=== PATIENT | female | born 1955 | race Caucasian/White ===

== ENCOUNTER 2020-12-17 14:08 | Inpatient (IN) | payer MEDICARE ==
[2020-12-17] VITALS (17 sets, daily range): BP systolic 91–154; BP diastolic 37–90
[~2020-12-17] VITALS: Ht 152.4 cm; Wt 74.9 kg
[~2020-12-17 14:08] MED LIST: ETOMIDATE 2MG/ML 10ML VIAL IV ONE; LIDOCAINE HCL 2% 5ML SYRINGE IV ONE; SUCCINYLCHOLINE CHLORIDE 200MG/10ML IV ONE
[2020-12-17] MEDS ORDERED: SODIUM CHLORIDE 0.9% 1,000 ML IV ONE (14:30)
[2020-12-17] MEDS ORDERED: ATROPINE SULFATE 1MG/10ML SYR IV ONE (14:45)
[2020-12-17] MEDS ORDERED: ASPIRIN 300MG SUPP PR ONE (14:45)
[2020-12-17] MEDS ORDERED: ONDANSETRON HCL 4MG/2ML INJ IV ONE (14:45)
[2020-12-17 15:00] LABS: BASOPHILS % 0.8 % (0.0-2.0); EOSINOPHILS % 10.5 % (0.0-5.0); HEMATOCRIT. 30.1 % (36.0-48.0); HEMOGLOBIN. 10.1 g/dL (12.0-16.0); LYMPHOCYTES % 35.5 % (20.0-50.0); MEAN CORPUSCULAR HEMOGLOBIN 30.7 pg (28.0-32.0); MEAN CORPUSCULAR VOLUME 91.4 fL (81.0-99.0); MEAN PLATELET VOLUME 8.1 fl (7.4-10.4); MONOCYTES % 4.7 % (2.0-8.0); NEUTROPHILS % 48.5 % (40.0-76.0); PLATELET 250 x1000/uL (130-400); RED CELL DISTRIBUTION WIDTH 13.5 % (11.6-14.6)
[2020-12-17] MEDS ORDERED: CALCIUM GLUCONATE 100MG/ML 10ML VIAL IV ONE (15:00)
[2020-12-17] MEDS ORDERED: ASPIRIN 81MG EC TABLET PO ONE (15:00)
[2020-12-17] MEDS ORDERED: DOPAMINE 400MG/250ML PREMIX 250 ML IV ONE (15:00)
[2020-12-17 15:07] LABS: CHLORIDE 102 mEq/L (98-107)
[2020-12-17 15:13] LABS: PARTIAL THROMBOPLASTIN TIME 23.7 sec (23.4-31.0); PROTHROMBIN TIME 10.6 sec (9.6-11.0)
[2020-12-17] MEDS ORDERED: MIDAZOLAM 100MG/100ML PREMIX IV PRN ×2 (15:15→15:30)
[2020-12-17] MEDS ORDERED: FENTANYL IV PRN (15:15)
[2020-12-17] MEDS ORDERED: SODIUM CHLORIDE 0.9% IV PRN (15:15)
[2020-12-17] MEDS ORDERED: NOREPINEPHRINE 8MG/250ML PMX 250 ML IV ONE ×2 (15:15→15:30)
[2020-12-17] MEDS ORDERED: IOHEXOL-300 100 ML BOTTLE ONE (15:20)
[2020-12-17] MEDS ORDERED: LIDOCAINE HCL 1% 30ML VIAL (10MG/ML) ONE (15:20)
[2020-12-17] MEDS ORDERED: IODIXANOL 320MG/ML 200ML BOTTLE ONE (15:21)
[2020-12-17] MEDS ORDERED: NOREPINEPHRINE 8MG/250ML PMX 250 ML IV SCH (15:30)
[2020-12-17] MEDS ORDERED: ALTEPLASE 100MG/VIAL IV ONE (15:45)
[2020-12-17] MEDS ORDERED: EPINEPHRINE 0.1MG/ML (1:10,000) 10ML SYR ONE (15:46)
[2020-12-17] MEDS ORDERED: ATROPINE SULFATE 0.1MG/ML 10ML DISP.SYRIN ONE (15:58)
[2020-12-17] MEDS ORDERED: HEPARIN 1000 UNITS/ML 10ML ONE (16:06)
[2020-12-17] MEDS ORDERED: EPINEPHRINE 10 MG in SODIUM CHLORIDE 0.9% 250 ML IV PRN (16:15)
[2020-12-17] MEDS ORDERED: NOREPINEPHRINE BITARTRATE 1MG/ML 4ML IV ONE (16:21)
[2020-12-17] MEDS ORDERED: FENTANYL CITRATE/PF 50MCG/ML 2ML VIAL ONE (16:35)
[2020-12-17] MEDS ORDERED: MIDAZOLAM HCL 2 MG/2 ML VIAL ONE ×2 (16:36→17:30)
[2020-12-17] MEDS ORDERED: ADENOSINE 3 MG/ML 2ML VIAL IV ONE (16:47)
[2020-12-17] MEDS ORDERED: EPTIFIBATIDE 2 MG/ML 10ML VIAL IV ONE (17:09)
[2020-12-17] MEDS ORDERED: EPTIFIBATIDE 0 ML IV ONE (17:09)
[2020-12-17] MEDS ORDERED: AMIODARONE HCL 900 MG in DEXT 5% WATER 500 ML IV PRN (17:30)
[2020-12-17] MEDS ORDERED: IPRATROPIUM/ALBUTEROL 0.5-3(2.5)MG/3ML NEB HHN PRN (17:30)
[2020-12-17] MEDS ORDERED: ONDANSETRON HCL 4MG/2ML INJ IV PRN (17:30)
[2020-12-17] MEDS ORDERED: TICAGRELOR 90 MG TABLET PO ONE (18:14)
[2020-12-17] MEDS ORDERED: NOREPINEPHRINE 8 MG in DEXT 5% WATER 242 ML IV PRN (18:45)
[2020-12-17] MEDS ORDERED: HEPARIN 5000 UNITS/ML VIAL IV SCH ×2 (19:00→19:15)
[2020-12-17] MEDS: DEXT 5%/0.9% NACL 1,000 ML IV SCH (19:00)
[2020-12-17] MEDS ORDERED: HEPARIN 25,000 UNITS PREMIX 250 ML IV PRN (19:00)
[2020-12-17] MEDS ORDERED: HEPARIN 5000 UNITS/ML VIAL IV PRN ×2 (19:00)
[2020-12-17] MEDS ORDERED: HEPARIN 25,000 UNITS PREMIX 250 ML IV SCH (19:30)
[2020-12-17] MEDS ORDERED: HEPARIN BOLUS PRN aPTT 30-44 IV (19:30)
[2020-12-17] MEDS ORDERED: HEPARIN 60 UNITS/KG BOLUS IV SCH (19:30)
[2020-12-17] MEDS ORDERED: HEPARIN BOLUS PRN aPTT <30 IV (19:30)
[2020-12-17 19:55] LABS: BG BASE EXCESS -7.6 mmol/L (-2.0-2.0); BG CARBOXYHEMOGLOBIN 0.5 % (0.5-1.5); BG DEOXYHEMOGLOBIN 4.4 % (0.0-5.0); BG FRACTION INSPIRED OXYGEN 50; BG HCO3 ACT 18.5 mmol/L (22.0-26.0); BG METHEMOGLOBIN 0.1 % (0.0-1.5); BG OXYGEN SATURATION 95.6 % (92.0-98.5); BG PCO2 39.8 mmHg (35.0-45.0); BG PH 7.285 (7.350-7.450); BG SAMPLE SITE ALINE; BG TOTAL HEMOGLOBIN 11.4 g/dL (12.0-18.0); BG VENT MODE VENT - AC
[2020-12-17] MEDS ORDERED: HEPARIN 5000 UNITS/ML VIAL SUBCUT SCH (20:00)
[2020-12-17] MEDS: FENTANYL CITRATE/PF 2,500 MCG in SODIUM CHLORIDE 0.9% 200 ML IV PRN (21:23)
[2020-12-17] MEDS: MIDAZOLAM HCL 100 MG in SODIUM CHLORIDE 0.9% 80 ML IV PRN (21:28)
[2020-12-17 22:07] LABS: INR 1.3; PROTHROMBIN TIME 14.1 sec (9.6-11.0)
[2020-12-18] VITALS (94 sets, daily range): BP systolic 82–155; BP diastolic 34–108
[2020-12-18] MEDS: NOREPINEPHRINE 8 MG in DEXT 5% WATER 242 ML IV PRN (04:13)
[2020-12-18 06:10] LABS: BASOPHILS % 0.2 % (0.0-2.0); EOSINOPHILS % 0.1 % (0.0-5.0); HEMATOCRIT. 31.5 % (36.0-48.0); HEMOGLOBIN. 10.5 g/dL (12.0-16.0); LYMPHOCYTES % 8.9 % (20.0-50.0); MEAN CORPUSCULAR HEMOGLOBIN 30.3 pg (28.0-32.0); MEAN CORPUSCULAR VOLUME 91.1 fL (81.0-99.0); MEAN PLATELET VOLUME 7.8 fl (7.4-10.4); MONOCYTES % 5.9 % (2.0-8.0); NEUTROPHILS % 84.9 % (40.0-76.0); PLATELET 214 x1000/uL (130-400); RED BLOOD CELL COUNT 3.45 mill/uL (4.2-5.4); RED CELL DISTRIBUTION WIDTH 13.7 % (11.6-14.6)
[2020-12-18 06:41] LABS: CHLORIDE 104 mEq/L (98-107)
[2020-12-18 06:59] LABS: LDL CHOLESTEROL 61 mg/dL (5-100)
[2020-12-18 07:00] LABS: HDL CHOLESTEROL 39 mg/dL (40-59)
[2020-12-18] MEDS ORDERED: DEXTROSE 50% WATER 50ML SYRINGE IV PRN (08:15)
[2020-12-18] MEDS ORDERED: INSULIN LISPRO 100 UNITS/ML SUBCUT SCH (08:15)
[2020-12-18] MEDS: INSULIN LISPRO 100 UNITS/ML SUBCUT SCH ×4 (08:20→21:59)
[2020-12-18 09:03] LABS: BG BASE EXCESS -6.7 mmol/L (-2.0-2.0); BG CARBOXYHEMOGLOBIN 0.3 % (0.5-1.5); BG DEOXYHEMOGLOBIN 1.2 % (0.0-5.0); BG FRACTION INSPIRED OXYGEN 50; BG HCO3 ACT 15.7 mmol/L (22.0-26.0); BG METHEMOGLOBIN 0.4 % (0.0-1.5); BG OXYGEN SATURATION 98.8 % (92.0-98.5); BG OXYHEMOGLOBIN 98.1 % (94.0-97.0); BG PH 7.472 (7.350-7.450); BG PO2 174.7 mmHg (75.0-100.0); BG SAMPLE SITE ALINE; BG TOTAL HEMOGLOBIN 8.6 g/dL (12.0-18.0); BG TOTAL RESPIRATORY RATE 16 b/min; BG VENT MODE VENT - AC
[2020-12-18] MEDS: ASPIRIN 81MG TABLET PO SCH (09:15)
[2020-12-18] MEDS: TICAGRELOR 90 MG TABLET PO SCH ×2 (09:15→16:17)
[2020-12-18] MEDS: DEXT 5%/0.9% NACL 1,000 ML IV SCH ×2 (09:17→21:50)
[2020-12-18] MEDS: PIPERACILLIN/TAZOBACTAM 3.375 G in DEXTROSE 5% WATER 50 ML IV SCH ×3 (10:42→22:24)
[2020-12-18] MEDS: INSULIN GLARGINE UD 100 UNITS/ML SYR SUBCUT SCH ×2 (10:43→21:58)
[2020-12-18] MEDS: MIDAZOLAM HCL 100 MG in SODIUM CHLORIDE 0.9% 80 ML IV PRN (12:33)
[2020-12-18] MEDS: BLOOD SUGAR DIAGNOSTIC STRIP TEST SCH ×3 (12:54→21:48)
[2020-12-18] MEDS: METOCLOPRAMIDE HCL 10MG/2ML VIAL IV SCH (18:11)
[2020-12-19] VITALS (97 sets, daily range): BP systolic 85–143; BP diastolic 27–91
[2020-12-19] MEDS: METOCLOPRAMIDE HCL 10MG/2ML VIAL IV SCH ×4 (00:40→17:51)
[2020-12-19] MEDS: MIDAZOLAM HCL 100 MG in SODIUM CHLORIDE 0.9% 80 ML IV PRN ×2 (00:42→13:01)
[2020-12-19] MEDS: FENTANYL CITRATE/PF 2,500 MCG in SODIUM CHLORIDE 0.9% 200 ML IV PRN (05:01)
[2020-12-19] MEDS: PIPERACILLIN/TAZOBACTAM 3.375 G in DEXTROSE 5% WATER 50 ML IV SCH ×3 (05:09→21:10)
[2020-12-19] MEDS: NOREPINEPHRINE 8 MG in DEXT 5% WATER 242 ML IV PRN ×2 (05:10→23:34)
[2020-12-19] MEDS: BLOOD SUGAR DIAGNOSTIC STRIP TEST SCH ×4 (06:19→20:55)
[2020-12-19] MEDS: DEXT 5%/0.9% NACL 1,000 ML IV SCH ×2 (06:28→16:40)
[2020-12-19] MEDS: INSULIN LISPRO 100 UNITS/ML SUBCUT SCH ×4 (06:28→21:00)
[2020-12-19] MEDS: ASPIRIN 81MG TABLET PO SCH (08:52)
[2020-12-19] MEDS: TICAGRELOR 90 MG TABLET PO SCH ×2 (08:52→17:51)
[2020-12-19 09:09] LABS: BASOPHILS % 0.2 % (0.0-2.0); EOSINOPHILS % 2.9 % (0.0-5.0); HEMATOCRIT. 31.3 % (36.0-48.0); HEMOGLOBIN. 10.5 g/dL (12.0-16.0); LYMPHOCYTES % 9.4 % (20.0-50.0); MEAN CORPUSCULAR HEMOGLOBIN 30.3 pg (28.0-32.0); MEAN CORPUSCULAR VOLUME 90.3 fL (81.0-99.0); MEAN PLATELET VOLUME 7.8 fl (7.4-10.4); MONOCYTES % 6.2 % (2.0-8.0); NEUTROPHILS % 81.3 % (40.0-76.0); PLATELET 139 x1000/uL (130-400); RED BLOOD CELL COUNT 3.47 mill/uL (4.2-5.4); RED CELL DISTRIBUTION WIDTH 14.1 % (11.6-14.6)
[2020-12-19] MEDS ORDERED: KCL 20MEQ/100ML PREMIX 100 ML IV ONE (10:00)
[2020-12-19] MEDS: INSULIN GLARGINE UD 100 UNITS/ML SYR SUBCUT SCH ×2 (10:14→21:14)
[2020-12-19] MEDS ORDERED: MAGNESIUM 2 G PREMIX 50 ML IV SCH (12:00)
[2020-12-19] MEDS ORDERED: POTASSIUM CHLORIDE INJ 60 MEQ in DEXT 5% WATER 500 ML IV SCH (12:00)
[2020-12-19 12:03] LABS: BG CARBOXYHEMOGLOBIN 0.3 % (0.5-1.5); BG DEOXYHEMOGLOBIN 2.1 % (0.0-5.0); BG HCO3 ACT 21.3 mmol/L (22.0-26.0); BG METHEMOGLOBIN 0.1 % (0.0-1.5); BG OXYGEN SATURATION 97.9 % (92.0-98.5); BG OXYHEMOGLOBIN 97.5 % (94.0-97.0); BG PH 7.454 (7.350-7.450); BG PO2 113.4 mmHg (75.0-100.0); BG SAMPLE SITE RIGHT RADIAL; BG TOTAL HEMOGLOBIN 10.4 g/dL (12.0-18.0); BG VENT MODE VENT - AC
[2020-12-19 14:02] LABS: CLARITY URINE CLOUDY (CLEAR); COLOR URINE YELLOW (YELLOW); KETONES URINE TRACE (NEGATIVE); LEUKOCYTE ESTERASE URINE NEGATIVE (NEGATIVE); NITRITE URINE NEGATIVE (NEGATIVE); OCCULT BLOOD URINE 3+ (NEGATIVE); PROTEIN URINE TRACE (NEGATIVE); SPECIFIC GRAVITY URINE 1.024 (1.005-1.030); UROBILINOGEN URINE 0.2 E.U./dL (0.2-1.0)
[2020-12-19] MEDS ORDERED: IOHEXOL-350 100 ML BOTTLE ONE (21:01)
[2020-12-19] MEDS: ACETAMINOPHEN 325MG TABLET PO PRN (21:26)
[2020-12-20] VITALS (100 sets, daily range): BP systolic 84–157; BP diastolic 32–104
[2020-12-20] MEDS: METOCLOPRAMIDE HCL 10MG/2ML VIAL IV SCH ×5 (00:31→23:52)
[2020-12-20] MEDS: MIDAZOLAM HCL 100 MG in SODIUM CHLORIDE 0.9% 80 ML IV PRN ×2 (01:58→14:45)
[2020-12-20] MEDS: DEXT 5%/0.9% NACL 1,000 ML IV SCH (01:59)
[2020-12-20] MEDS: FENTANYL CITRATE/PF 2,500 MCG in SODIUM CHLORIDE 0.9% 200 ML IV PRN (03:30)
[2020-12-20 05:24] LABS: BASOPHILS % 0.3 % (0.0-2.0); EOSINOPHILS % 4.4 % (0.0-5.0); HEMATOCRIT. 25.8 % (36.0-48.0); HEMOGLOBIN. 8.7 g/dL (12.0-16.0); LYMPHOCYTES % 12.5 % (20.0-50.0); MEAN CORPUSCULAR HEMOGLOBIN 30.9 pg (28.0-32.0); MEAN CORPUSCULAR VOLUME 91.2 fL (81.0-99.0); MEAN PLATELET VOLUME 7.9 fl (7.4-10.4); MONOCYTES % 6.9 % (2.0-8.0); NEUTROPHILS % 75.9 % (40.0-76.0); PLATELET 86 x1000/uL (130-400); RED BLOOD CELL COUNT 2.83 mill/uL (4.2-5.4); RED CELL DISTRIBUTION WIDTH 14.2 % (11.6-14.6)
[2020-12-20] MEDS: PIPERACILLIN/TAZOBACTAM 3.375 G in DEXTROSE 5% WATER 50 ML IV SCH ×3 (05:58→21:00)
[2020-12-20] MEDS ORDERED: POTASSIUM CHLORIDE 20MEQ/PACKET PO NR (06:15)
[2020-12-20] MEDS: BLOOD SUGAR DIAGNOSTIC STRIP TEST SCH ×4 (06:18→20:56)
[2020-12-20] MEDS: INSULIN LISPRO 100 UNITS/ML SUBCUT SCH ×4 (06:22→20:55)
[2020-12-20] MEDS ORDERED: POTASSIUM CHLORIDE 20MEQ/PACKET PO ONE (07:00)
[2020-12-20 07:32] LABS: PHOSPHORUS 1.3 mg/dL (2.5-4.9)
[2020-12-20] MEDS: ASPIRIN 81MG TABLET PO SCH (08:38)
[2020-12-20] MEDS: TICAGRELOR 90 MG TABLET PO SCH ×2 (08:38→17:28)
[2020-12-20 08:58] LABS: BG CARBOXYHEMOGLOBIN 0.5 % (0.5-1.5); BG DEOXYHEMOGLOBIN 1.5 % (0.0-5.0); BG FRACTION INSPIRED OXYGEN 35; BG HCO3 ACT 21.1 mmol/L (22.0-26.0); BG METHEMOGLOBIN 0.6 % (0.0-1.5); BG OXYGEN SATURATION 98.5 % (92.0-98.5); BG OXYHEMOGLOBIN 97.4 % (94.0-97.0); BG PCO2 29.8 mmHg (35.0-45.0); BG PH 7.467 (7.350-7.450); BG PO2 130.7 mmHg (75.0-100.0); BG SAMPLE SITE RIGHT RADIAL; BG TOTAL HEMOGLOBIN 9.2 g/dL (12.0-18.0); BG VENT MODE VENT - AC
[2020-12-20] MEDS: INSULIN GLARGINE UD 100 UNITS/ML SYR SUBCUT SCH ×2 (09:25→21:00)
[2020-12-20] MEDS ORDERED: POTASSIUM PHOS,M-BASIC-D-BASIC 20 MMOL in DEXT 5% WATER 243.3333 ML IV NR (11:30)
[2020-12-20] MEDS ORDERED: SODIUM CHLORIDE 0.9% 250 ML IV PRN ×2 (12:00→13:19)
[2020-12-20] MEDS: MIDODRINE HCL 5MG TABLET PO SCH ×2 (12:30→17:28)
[2020-12-20] MEDS: PANTOPRAZOLE SODIUM 40 MG/VIAL IV SCH (13:00)
[2020-12-20] MEDS ORDERED: LIDOCAINE HCL 1% 20ML VIAL (Pyxis) INJ ONE (13:22)
[2020-12-20] MEDS: NOREPINEPHRINE 8 MG in DEXT 5% WATER 242 ML IV PRN (21:21)
[2020-12-21] VITALS (81 sets, daily range): BP systolic 80–168; BP diastolic 44–149
[2020-12-21] MEDS: PIPERACILLIN/TAZOBACTAM 3.375 G in DEXTROSE 5% WATER 50 ML IV SCH ×3 (05:18→21:34)
[2020-12-21] MEDS: METOCLOPRAMIDE HCL 10MG/2ML VIAL IV SCH ×3 (05:18→18:13)
[2020-12-21 06:14] LABS: MEAN CORPUSCULAR HEMOGLOBIN 31.7 pg (28.0-32.0); MEAN CORPUSCULAR VOLUME 94.2 fL (81.0-99.0); MEAN PLATELET VOLUME 9.2 fl (7.4-10.4); PLATELET 55 x1000/uL (130-400); RED CELL DISTRIBUTION WIDTH 14.4 % (11.6-14.6)
[2020-12-21 06:54] LABS: HEMOGLOBIN. 6.7 g/dL (12.0-16.0)
[2020-12-21 06:55] LABS: HEMATOCRIT. 19.8 % (36.0-48.0)
[2020-12-21] MEDS: BLOOD SUGAR DIAGNOSTIC STRIP TEST SCH ×4 (07:50→21:20)
[2020-12-21] MEDS ORDERED: LACTULOSE 20G/30ML UDC PO NR (08:00)
[2020-12-21] MEDS: INSULIN LISPRO 100 UNITS/ML SUBCUT SCH ×4 (08:20→21:33)
[2020-12-21 09:04] LABS: PLATELET ESTIMATE MARKEDLY DECREASED
[2020-12-21] MEDS: ASPIRIN 81MG TABLET PO SCH (09:10)
[2020-12-21] MEDS: TICAGRELOR 90 MG TABLET PO SCH (09:10)
[2020-12-21] MEDS: PANTOPRAZOLE SODIUM 40 MG/VIAL IV SCH (09:10)
[2020-12-21] MEDS: MIDODRINE HCL 5MG TABLET PO SCH ×3 (09:10→17:00)
[2020-12-21] MEDS: INSULIN GLARGINE UD 100 UNITS/ML SYR SUBCUT SCH ×2 (09:11→21:33)
[2020-12-21] MEDS: FENTANYL CITRATE/PF 2,500 MCG in SODIUM CHLORIDE 0.9% 200 ML IV PRN (09:12)
[2020-12-21 09:43] LABS: BG BASE EXCESS -3.2 mmol/L (-2.0-2.0); BG CARBOXYHEMOGLOBIN 0.2 % (0.5-1.5); BG DEOXYHEMOGLOBIN 2.3 % (0.0-5.0); BG FRACTION INSPIRED OXYGEN 35; BG HCO3 ACT 21.3 mmol/L (22.0-26.0); BG METHEMOGLOBIN 0.5 % (0.0-1.5); BG OXYGEN SATURATION 97.7 % (92.0-98.5); BG PCO2 35.6 mmHg (35.0-45.0); BG PH 7.394 (7.350-7.450); BG PO2 115.4 mmHg (75.0-100.0); BG SAMPLE SITE LEFT RADIAL; BG TOTAL HEMOGLOBIN 8.9 g/dL (12.0-18.0); BG VENT MODE VENT - AC
[2020-12-21 11:36] LABS: PHOSPHORUS 2.4 mg/dL (2.5-4.9)
[2020-12-21] MEDS ORDERED: HYDRALAZINE 20MG/ML VIAL IV NR (17:00)
[2020-12-21] MEDS ORDERED: HYDRALAZINE 20MG/ML VIAL ONE (17:02)
[2020-12-21] MEDS: CLONIDINE 0.1MG TABLET PO PRN (18:14)
[2020-12-21 19:00] LABS: HEMATOCRIT 34.5 % (36.0-48.0); HEMOGLOBIN 11.7 g/dL (12.0-16.0)
[2020-12-21 19:22] LABS: INR 0.9; PROTHROMBIN TIME 10.2 sec (9.6-11.0)
[2020-12-22] VITALS (53 sets, daily range): BP systolic 77–206; BP diastolic 47–98
[2020-12-22] MEDS: METOCLOPRAMIDE HCL 10MG/2ML VIAL IV SCH ×4 (00:20→17:50)
[2020-12-22] MEDS: PIPERACILLIN/TAZOBACTAM 3.375 G in DEXTROSE 5% WATER 50 ML IV SCH ×3 (05:36→21:32)
[2020-12-22 06:10] LABS: BASOPHILS % 0.2 % (0.0-2.0); EOSINOPHILS % 7.5 % (0.0-5.0); HEMATOCRIT. 35.8 % (36.0-48.0); HEMOGLOBIN. 12.1 g/dL (12.0-16.0); LYMPHOCYTES % 10.9 % (20.0-50.0); MEAN CORPUSCULAR HEMOGLOBIN 30.5 pg (28.0-32.0); MEAN CORPUSCULAR VOLUME 90.1 fL (81.0-99.0); MEAN PLATELET VOLUME 8.5 fl (7.4-10.4); MONOCYTES % 9.3 % (2.0-8.0); NEUTROPHILS % 72.1 % (40.0-76.0); PLATELET 84 x1000/uL (130-400); RED BLOOD CELL COUNT 3.98 mill/uL (4.2-5.4); RED CELL DISTRIBUTION WIDTH 14.1 % (11.6-14.6)
[2020-12-22 06:17] LABS: CHLORIDE 110 mEq/L (98-107)
[2020-12-22 06:28] LABS: INR 0.9; PROTHROMBIN TIME 10.1 sec (9.6-11.0)
[2020-12-22] MEDS: BLOOD SUGAR DIAGNOSTIC STRIP TEST SCH ×4 (08:02→21:41)
[2020-12-22] MEDS: MIDODRINE HCL 5MG TABLET PO SCH (09:00)
[2020-12-22] MEDS ORDERED: CLOPIDOGREL 75MG TABLET PO NR (09:00)
[2020-12-22] MEDS: PANTOPRAZOLE SODIUM 40 MG/VIAL IV SCH (09:19)
[2020-12-22] MEDS: ASPIRIN 81MG TABLET PO SCH (09:19)
[2020-12-22] MEDS: INSULIN LISPRO 100 UNITS/ML SUBCUT SCH ×4 (09:20→21:00)
[2020-12-22] MEDS: INSULIN GLARGINE UD 100 UNITS/ML SYR SUBCUT SCH ×2 (09:20→21:33)
[2020-12-22 10:29] LABS: BG BASE EXCESS -0.6 mmol/L (-2.0-2.0); BG CARBOXYHEMOGLOBIN 0.9 % (0.5-1.5); BG DEOXYHEMOGLOBIN 4.5 % (0.0-5.0); BG FRACTION INSPIRED OXYGEN 35; BG HCO3 ACT 23.8 mmol/L (22.0-26.0); BG METHEMOGLOBIN 0.3 % (0.0-1.5); BG OXYGEN SATURATION 95.4 % (92.0-98.5); BG OXYHEMOGLOBIN 94.3 % (94.0-97.0); BG PCO2 38.1 mmHg (35.0-45.0); BG PH 7.413 (7.350-7.450); BG PO2 74.8 mmHg (75.0-100.0); BG SAMPLE SITE RIGHT RADIAL; BG TOTAL HEMOGLOBIN 12.6 g/dL (12.0-18.0); BG TOTAL RESPIRATORY RATE 15 b/min; BG VENT MODE VENT - CPAP
[2020-12-22] MEDS ORDERED: HYDRALAZINE 20MG/ML VIAL IV ONE (11:30)
[2020-12-22] MEDS ORDERED: METOPROLOL SUCCINATE 50MG ER TABLET PO SCH (11:30)
[2020-12-22] MEDS: METOPROLOL TARTRATE 25MG TABLET PO SCH ×2 (12:35→20:57)
[2020-12-23] VITALS (51 sets, daily range): BP systolic 111–182; BP diastolic 31–127
[2020-12-23] MEDS: METOCLOPRAMIDE HCL 10MG/2ML VIAL IV SCH ×4 (00:22→17:27)
[2020-12-23] MEDS: DIPHENHYDRAMINE 50MG/ML VIAL IV PRN ×2 (02:58→21:03)
[2020-12-23] MEDS: HYDRALAZINE 20MG/ML VIAL IV PRN ×2 (02:59→17:27)
[2020-12-23] MEDS: ACETAMINOPHEN 325MG TABLET PO PRN ×2 (03:29→23:10)
[2020-12-23] MEDS: MORPHINE SULFATE 2 MG/ML CPJ (NOT FOR IM USE) IV PRN ×4 (03:52→19:47)
[2020-12-23] MEDS: PIPERACILLIN/TAZOBACTAM 3.375 G in DEXTROSE 5% WATER 50 ML IV SCH (05:51)
[2020-12-23] MEDS: INSULIN LISPRO 100 UNITS/ML SUBCUT SCH ×4 (06:15→21:00)
[2020-12-23] MEDS: BLOOD SUGAR DIAGNOSTIC STRIP TEST SCH ×4 (06:15→21:03)
[2020-12-23] MEDS: METOPROLOL TARTRATE 25MG TABLET PO SCH ×2 (09:38→21:02)
[2020-12-23] MEDS: ASPIRIN 81MG TABLET PO SCH (09:38)
[2020-12-23] MEDS: CLOPIDOGREL 75MG TABLET PO SCH (09:38)
[2020-12-23] MEDS: INSULIN GLARGINE UD 100 UNITS/ML SYR SUBCUT SCH ×2 (09:39→21:03)
[2020-12-23] MEDS: PANTOPRAZOLE SODIUM 40 MG/VIAL IV SCH (09:39)
[2020-12-23 09:45] LABS: HEMATOCRIT. 35.8 % (36.0-48.0); HEMOGLOBIN. 12.2 g/dL (12.0-16.0); MEAN CORPUSCULAR HEMOGLOBIN 30.1 pg (28.0-32.0); MEAN CORPUSCULAR VOLUME 88.7 fL (81.0-99.0); MEAN PLATELET VOLUME 8.2 fl (7.4-10.4); PLATELET 148 x1000/uL (130-400); RED BLOOD CELL COUNT 4.04 mill/uL (4.2-5.4); RED CELL DISTRIBUTION WIDTH 13.9 % (11.6-14.6)
[2020-12-23 09:52] LABS: CHLORIDE 108 mEq/L (98-107)
[2020-12-23 10:27] LABS: PLATELET ESTIMATE NORMAL
[2020-12-23] MEDS ORDERED: NALOXONE HCL 0.4MG/ML VIAL IV PRN (11:00)
[2020-12-23] MEDS: TRAMADOL 50MG TABLET PO PRN ×3 (11:38→23:49)
[2020-12-23] MEDS ORDERED: LIDOCAINE 5% PATCH TOP PRN (18:45)
[2020-12-23] MEDS: CLONIDINE 0.1MG TABLET PO PRN (18:51)
[2020-12-24] VITALS (21 sets, daily range): BP systolic 113–146; BP diastolic 39–84
[2020-12-24] MEDS: METOCLOPRAMIDE HCL 10MG/2ML VIAL IV SCH ×4 (00:32→17:08)
[2020-12-24 07:04] LABS: BASOPHILS % 0.5 % (0.0-2.0); EOSINOPHILS % 4.8 % (0.0-5.0); HEMOGLOBIN. 11.7 g/dL (12.0-16.0); LYMPHOCYTES % 11.6 % (20.0-50.0); MEAN CORPUSCULAR HEMOGLOBIN 30.3 pg (28.0-32.0); MEAN CORPUSCULAR VOLUME 90.8 fL (81.0-99.0); MEAN PLATELET VOLUME 8.3 fl (7.4-10.4); MONOCYTES % 12.2 % (2.0-8.0); NEUTROPHILS % 70.9 % (40.0-76.0); PLATELET 199 x1000/uL (130-400); RED BLOOD CELL COUNT 3.86 mill/uL (4.2-5.4)
[2020-12-24 07:23] LABS: CHLORIDE 106 mEq/L (98-107)
[2020-12-24] MEDS: BLOOD SUGAR DIAGNOSTIC STRIP TEST SCH ×3 (08:07→20:57)
[2020-12-24] MEDS: INSULIN LISPRO 100 UNITS/ML SUBCUT SCH ×4 (08:07→21:00)
[2020-12-24] MEDS: ASPIRIN 81MG TABLET PO SCH (08:12)
[2020-12-24] MEDS: PANTOPRAZOLE SODIUM 40 MG/VIAL IV SCH (08:12)
[2020-12-24] MEDS: METOPROLOL TARTRATE 25MG TABLET PO SCH ×2 (08:12→20:57)
[2020-12-24] MEDS: CLOPIDOGREL 75MG TABLET PO SCH (08:15)
[2020-12-24] MEDS ORDERED: POTASSIUM CHLORIDE 20MEQ/PACKET PO NR (08:15)
[2020-12-24] MEDS: INSULIN GLARGINE UD 100 UNITS/ML SYR SUBCUT SCH ×2 (11:10→22:51)
[2020-12-24] MEDS: TRAMADOL 50MG TABLET PO PRN ×2 (11:42→17:31)
[2020-12-24] MEDS: MORPHINE SULFATE 2 MG/ML CPJ (NOT FOR IM USE) IV PRN ×3 (13:04→22:50)
[2020-12-25] VITALS (12 sets, daily range): BP systolic 106–153; BP diastolic 46–82
[2020-12-25] MEDS: METOCLOPRAMIDE HCL 10MG/2ML VIAL IV SCH ×2 (00:46→06:38)
[2020-12-25] MEDS: MORPHINE SULFATE 2 MG/ML CPJ (NOT FOR IM USE) IV PRN ×2 (03:15→20:18)
[2020-12-25] MEDS: INSULIN LISPRO 100 UNITS/ML SUBCUT SCH ×4 (06:38→21:40)
[2020-12-25] MEDS: BLOOD SUGAR DIAGNOSTIC STRIP TEST SCH ×4 (06:38→21:42)
[2020-12-25] MEDS: METOPROLOL TARTRATE 25MG TABLET PO SCH ×2 (09:33→20:19)
[2020-12-25] MEDS: PANTOPRAZOLE SODIUM 40 MG/VIAL IV SCH (09:33)
[2020-12-25] MEDS: ASPIRIN 81MG TABLET PO SCH (09:33)
[2020-12-25] MEDS: CLOPIDOGREL 75MG TABLET PO SCH (09:34)
[2020-12-25 11:36] LABS: CHLORIDE 105 mEq/L (98-107)
[2020-12-25] MEDS: INSULIN GLARGINE UD 100 UNITS/ML SYR SUBCUT SCH ×2 (11:39→21:39)
[2020-12-25 20:16] LABS: BASOPHILS % 0.1 % (0.0-2.0); EOSINOPHILS % 7.2 % (0.0-5.0); HEMATOCRIT. 36.8 % (36.0-48.0); HEMOGLOBIN. 12.4 g/dL (12.0-16.0); LYMPHOCYTES % 9.5 % (20.0-50.0); MEAN CORPUSCULAR HEMOGLOBIN 30.8 pg (28.0-32.0); MEAN CORPUSCULAR VOLUME 90.9 fL (81.0-99.0); MEAN PLATELET VOLUME 7.6 fl (7.4-10.4); MONOCYTES % 11.4 % (2.0-8.0); NEUTROPHILS % 71.8 % (40.0-76.0); PLATELET 295 x1000/uL (130-400); RED BLOOD CELL COUNT 4.05 mill/uL (4.2-5.4); RED CELL DISTRIBUTION WIDTH 13.9 % (11.6-14.6)
[2020-12-25] MEDS: FAMOTIDINE 20MG/2ML VIAL IV SCH (20:16)
[2020-12-25] MEDS: ATORVASTATIN CALCIUM 20MG TABLET PO SCH (20:19)
[2020-12-26] VITALS (12 sets, daily range): BP systolic 122–148; BP diastolic 66–91
[2020-12-26] MEDS: MORPHINE SULFATE 2 MG/ML CPJ (NOT FOR IM USE) IV PRN (02:11)
[2020-12-26 05:30] LABS: BASOPHILS % 0.3 % (0.0-2.0); HEMOGLOBIN. 11.7 g/dL (12.0-16.0); LYMPHOCYTES % 10.1 % (20.0-50.0); MEAN CORPUSCULAR HEMOGLOBIN 30.2 pg (28.0-32.0); MEAN CORPUSCULAR VOLUME 90.5 fL (81.0-99.0); MEAN PLATELET VOLUME 7.5 fl (7.4-10.4); NEUTROPHILS % 72.6 % (40.0-76.0); PLATELET 317 x1000/uL (130-400); RED BLOOD CELL COUNT 3.87 mill/uL (4.2-5.4); RED CELL DISTRIBUTION WIDTH 13.9 % (11.6-14.6)
[2020-12-26 05:33] LABS: CHLORIDE 104 mEq/L (98-107)
[2020-12-26] MEDS: BLOOD SUGAR DIAGNOSTIC STRIP TEST SCH ×4 (06:18→21:11)
[2020-12-26] MEDS: INSULIN LISPRO 100 UNITS/ML SUBCUT SCH ×4 (07:20→21:00)
[2020-12-26] MEDS: ASPIRIN 81MG TABLET PO SCH (09:33)
[2020-12-26] MEDS: FAMOTIDINE 20MG/2ML VIAL IV SCH (09:33)
[2020-12-26] MEDS: METOPROLOL TARTRATE 25MG TABLET PO SCH ×2 (09:33→21:10)
[2020-12-26] MEDS: CLOPIDOGREL 75MG TABLET PO SCH (09:33)
[2020-12-26] MEDS: INSULIN GLARGINE UD 100 UNITS/ML SYR SUBCUT SCH (09:36)
[2020-12-26] MEDS: LOSARTAN POTASSIUM 25 MG TABLET PO SCH (12:56)
[2020-12-26] MEDS: TRAMADOL 50MG TABLET PO PRN (15:55)
[2020-12-26] MEDS: ATORVASTATIN CALCIUM 20MG TABLET PO SCH (21:10)
[2020-12-26] MEDS: FAMOTIDINE 20MG TABLET PO SCH (21:11)
[2020-12-26] MEDS ORDERED: INSULIN GLARGINE UD 100 UNITS/ML SYR SUBCUT SCH (22:00)
[2020-12-27] VITALS (14 sets, daily range): BP systolic 100–151; BP diastolic 43–74
[2020-12-27] MEDS: TRAMADOL 50MG TABLET PO PRN ×2 (00:01→16:28)
[2020-12-27] MEDS: BLOOD SUGAR DIAGNOSTIC STRIP TEST SCH ×4 (06:59→21:13)
[2020-12-27 07:13] LABS: HEMATOCRIT. 36.3 % (36.0-48.0); HEMOGLOBIN. 12.3 g/dL (12.0-16.0); MEAN CORPUSCULAR HEMOGLOBIN 31.1 pg (28.0-32.0); MEAN CORPUSCULAR VOLUME 91.7 fL (81.0-99.0); MEAN PLATELET VOLUME 8.2 fl (7.4-10.4); PLATELET 367 x1000/uL (130-400); RED BLOOD CELL COUNT 3.95 mill/uL (4.2-5.4); RED CELL DISTRIBUTION WIDTH 13.7 % (11.6-14.6)
[2020-12-27] MEDS: INSULIN LISPRO 100 UNITS/ML SUBCUT SCH ×4 (07:20→21:00)
[2020-12-27 07:30] LABS: CHLORIDE 104 mEq/L (98-107)
[2020-12-27] MEDS: ASPIRIN 81MG TABLET PO SCH (08:00)
[2020-12-27] MEDS: LOSARTAN POTASSIUM 25 MG TABLET PO SCH (08:00)
[2020-12-27] MEDS: FAMOTIDINE 20MG TABLET PO SCH ×2 (08:00→21:14)
[2020-12-27] MEDS: CLOPIDOGREL 75MG TABLET PO SCH (08:00)
[2020-12-27] MEDS: METOPROLOL TARTRATE 25MG TABLET PO SCH ×2 (08:00→21:14)
[2020-12-27] MEDS ORDERED: TEMAZEPAM 15MG CAPSULE PO PRN (09:00)
[2020-12-27] MEDS ORDERED: LORAZEPAM 2MG/ML CPJ IV PRN (09:00)
[2020-12-27] MEDS ORDERED: LACTULOSE 20G/30ML UDC PO SCH (09:00)
[2020-12-27] MEDS: MORPHINE SULFATE 2 MG/ML CPJ (NOT FOR IM USE) IV PRN (09:08)
[2020-12-27] MEDS: INSULIN GLARGINE UD 100 UNITS/ML SYR SUBCUT SCH ×2 (11:58→21:13)
[2020-12-27 17:09] LABS: PLATELET ESTIMATE NORMAL
[2020-12-27] MEDS: ATORVASTATIN CALCIUM 20MG TABLET PO SCH (21:14)
[2020-12-28] VITALS: BP 152/77
== END 2020-12-28 05:35 | DRG 270 ==
LOC: ER 14:08 → CVICU 16:27 → EDBEDREQTM 16:30 → EDBEDREQ 16:30 → 3WST 12-24 16:44
PROVIDERS: ADMIT Internal Medicine; ATTEND Internal Medicine
PROC: 5A02210 Assistance with Cardiac Output using Balloon Pump, Continuous (ICD-10-PCS; principal; 2020-12-17)
PROC: 027035Z Dilation of Coronary Artery, One Artery with Two Drug-eluting Intraluminal Devices, Percutaneous Approach (ICD-10-PCS; 2020-12-17)
PROC: 5A12012 Performance of Cardiac Output, Single, Manual (ICD-10-PCS; 2020-12-17)
PROC: 5A1223Z Performance of Cardiac Pacing, Continuous (ICD-10-PCS; 2020-12-17)
PROC: 4A023N7 Measurement of Cardiac Sampling and Pressure, Left Heart, Percutaneous Approach (ICD-10-PCS; 2020-12-17)
PROC: B211YZZ Fluoroscopy of Multiple Coronary Arteries using Other Contrast (ICD-10-PCS; 2020-12-17)
PROC: B41GYZZ Fluoroscopy of Left Lower Extremity Arteries using Other Contrast (ICD-10-PCS; 2020-12-17)
PROC: 5A1955Z Respiratory Ventilation, Greater than 96 Consecutive Hours (ICD-10-PCS; 2020-12-17)
PROC: 0BH17EZ Insertion of Endotracheal Airway into Trachea, Via Natural or Artificial Opening (ICD-10-PCS; 2020-12-17)
PROC: 02HV33Z Insertion of Infusion Device into Superior Vena Cava, Percutaneous Approach (ICD-10-PCS; 2020-12-20)
PROC: B548ZZA Ultrasonography of Superior Vena Cava, Guidance (ICD-10-PCS; 2020-12-20)
PROC: 30233N1 Transfusion of Nonautologous Red Blood Cells into Peripheral Vein, Percutaneous Approach (ICD-10-PCS; 2020-12-21)
DX: I21.19 ST elevation (STEMI) myocardial infarction involving other coronary artery of inferior wall (principal); J96.01 Acute respiratory failure with hypoxia; I46.2 Cardiac arrest due to underlying cardiac condition; K72.00 Acute and subacute hepatic failure without coma; I49.01 Ventricular fibrillation; J15.3 Pneumonia due to streptococcus, group B; I44.2 Atrioventricular block, complete; E44.1 Mild protein-calorie malnutrition; N17.9 Acute kidney failure, unspecified; G93.49 Other encephalopathy; Z20.822 Contact with and (suspected) exposure to COVID-19; I21.09 ST elevation (STEMI) myocardial infarction involving other coronary artery of anterior wall; E87.6 Hypokalemia; E11.65 Type 2 diabetes mellitus with hyperglycemia; D64.9 Anemia, unspecified; E83.42 Hypomagnesemia; D69.6 Thrombocytopenia, unspecified; G90.8 Other disorders of autonomic nervous system; D72.10 Eosinophilia, unspecified; K76.0 Fatty (change of) liver, not elsewhere classified; Z79.4 Long term (current) use of insulin; Z78.1 Physical restraint status; Z68.32 Body mass index [BMI] 32.0-32.9, adult
CPT/HCPCS: 33967; 36415; 36600; 71045; 71275; 74174; 76770; 76937; 80048; 80053; 80061; 80076; 81003; 82248; 82270; 82375; 82805; 82962; 83010; 83036; 83605; 83615; 83735; 84100; 84443; 84484; 85014; 85018; 85025; 85044; 85049; 85347; 85384; 86850; 86900; 86920; 87070; 87077; 87426; 92610; 92928; 92950; 93005; 93306; 93454; 93970; 94002; 94003; 97162; 97167; 97530; 99291; C1725; C1760; C1769; C1874; C1887; C1893; C1894; C9113; J0153; J0330; J0360; J0461; J0610; J1200; J1265; J1327; J1644; J1815; J2250; J2270; J2405; J2543; J2765; J2997; J3010; J3475; J3480; J3490; J7030; J7040; J7042; J7050; J7060; L1830; P9016; Q9967; A4315; J8499